=== PATIENT | female | born 1990 | race American Indian/Alaskan Native ===

== ENCOUNTER 2016-10-04 17:57 | Emergency (ER) | payer MEDICAID ==
[2016-10-04] MEDS ORDERED: TYLENOL PO ONE (18:45)
--- NOTE | 2016-10-04 19:01 | Emergency Department Report ---
Chief Complaint: Urogenital-Female Stated Complaint: SIDE PAINS Time Seen by Provider: 10/04/16 18:44 - HPI History of Present Illness: PT states she went to another ED last night for odor to urine. PT states she has had a UTI before and felt the same. PT states today her left side hurt. - ROS Review of Systems: + abd pain pt unsure if she has had fevers - dysuria - Exam Vital Signs: Vital Signs 10/04/16 10/04/16 18:42 18:55 Temperature 101.4 F H Pulse Rate 112 H Respiratory 20 20 Rate Blood Pressure 113/71 O2 Sat by Pulse 100 Oximetry Physical Exam: pt looks well, non toxic - however, pt found to be febrile in triage pt with mild llq tenderness on abd exam MSE screening note: Focused history and physical exam performed. Due to findings the following was ordered: due to fever and possible infection, labs including blood cultures ordered ED Disposition for MSE Condition: Stable
[2016-10-04 20:07] LABS: Bacteria,Urine 2+ /HPF (Negative); Bilirubin,Urine NEG (Negative); Blood,Urine LG (Negative); Ketones,Urine 20 mg/dL (Negative); Leukocyte Esterase,Urine TR (Negative); Mucus,Urine FEW /HPF; Nitrite,Urine NEG (Negative); Urobilinogen,Urine < 2.0 mg/dL (<2.0)
[2016-10-04 20:19] LABS: Hemoglobin 14.2 gm/dl (10.1-14.3); Mean Corpuscular HGB Conc 33 % (30-34); Mean Corpuscular Hemoglobin 29 pg (28-32); Mean Corpuscular Volume 87 fl (79-97); Red Blood Count 4.98 M/mm3 (3.65-5.03); Red Cell Distribution Width 17.2 % (13.2-15.2); White Blood Count 9.2 K/mm3 (4.5-11.0)
[2016-10-04 20:21] LABS: Alanine Aminotransferase 11 units/L (7-56); Albumin/Globulin Ratio 1.1 %; Alkaline Phosphatase 84 units/L (35-129); Anion Gap 18 mmol/L; Bilirubin,Total 0.7 mg/dL (0.1-1.2); Blood Urea Nitrogen 6 mg/dL (7-17); Calcium 8.6 mg/dL (8.4-10.2); Carbon Dioxide 20 mmol/L (22-30); Glucose 106 mg/dL (65-100); Lipase 20 units/L (13-60); Potassium 3.7 mmol/L (3.6-5.0); Sodium 131 mmol/L (137-145); Total Protein 7.8 g/dL (6.3-8.2)
[2016-10-04 20:21] LABS: Platelet Count 111 K/mm3 (140-440)
[2016-10-04 20:43] LABS: Basophils % (Manual) 0 % (0.0-1.8); Blastocytes % (Manual) 0 %; Eosinophils % (Manual) 0 % (0.0-4.3)
[2016-10-04 20:44] LABS: Platelet Estimate Appears Decreased
[2016-10-04 20:45] LABS: Anisocytosis Few; Diff Status Complete; Poikilocytosis Few
--- NOTE | 2016-10-04 22:28 | Emergency Department Report ---
HPI - General Chief Complaint: Urogenital-Female Time Seen by Provider: 10/04/16 18:44 - HPI HPI: 26-year-old female comes in with complaint of left side pain that started yesterday. Patient reports that she went to [facility] last night and left prior to obtaining her prescription. She reports that she was diagnosed with the UTI. She also complains of urinary has a smell no burning. She has a fever decreased appetite but drinking okay the pain is constant and worse with inhalation admits to nausea no vomiting. ED Past Medical Hx - Past Medical History Hx Hypertension: No Hx Diabetes: No Hx Deep Vein Thrombosis: No Hx Renal Disease: No Hx Sickle Cell Disease: No Hx Seizures: No Hx Asthma: No Hx HIV: No - Surgical History Past Surgical History?: No - Social History Smoking Status: Never Smoker Substance Use Type: None - Medications Home Medications: Home Medications Medication Instructions Recorded Confirmed Last Taken Type Ketorolac [Toradol] 10 mg PO Q6H PRN #20 tablet 10/05/16 Unknown Rx Nitrofurantoin Mcclain/M-Cryst 100 mg PO Q12HR #14 capsule 10/05/16 Unknown Rx [Macrobid CAP] ED Review of Systems ROS: Stated complaint: SIDE PAINS Other details as noted in HPI Physical Exam - Physical Exam Vital Signs: Vital Signs 10/04/16 10/04/16 18:42 18:55 Temperature 101.4 F H Pulse Rate 112 H Respiratory 20 20 Rate Blood Pressure 113/71 O2 Sat by Pulse 100 Oximetry Physical Exam: GENERAL: Alert and oriented x3, no apparent distress, Normal Gait, atraumatic. HEAD: Head is normocephalic and a-traumatic. EYES: Extra ocular muscles are intact. Pupils are equal, round, and reactive to light and accommodation. EARS: symetrical, atraumatic, non tender, ear canal clear and moderate cerumen, tympanic membrance non inflamed. gross auditory nml bilaterally. NOSE: Nose symetrical, Nontender,Nares appeared normal. MOUTH:Mouth is well hydrated and without lesions. Tonsils nonerythematous or swollen, Uvula midline, Tongue not elevated. Mucous membranes are moist. Posterior pharynx clear, no exudate or lesions. Patent airways. NECK: Supple. Non edematous, No carotid bruits. No lymphadenopathy or thyromegaly. LUNGS: Symetrical with respiration, No wheezing, no rales or crackles, CTAB. HEART: S1, S2 present, tachycardia rate and rhythm without murmur, no rubs, no gallops. ABDOMEN: No organomegaly was noted,Positive bowel sounds, soft, and non- distended. . tender to palpation of the LLQ L CVA tenderness. GENITOURINARY: External genitalia without erythema, exudate or discharge. Vaginal vault is without discharge. Cervix is of normal color without lesion. Cervical os is closed. No bleeding noted. Uterus is noted to be of normal size and nontender. No cervical motion tenderness. No masses are palpated. The adnexa are without masses or tenderness. EXTREMITIES/MUSCULOSKELETAL: No cyanosis, clubbing, rash, lesions or edema. Full ROM bilaterally. UE/LE Pulses 2+ bilaterally. LE and UE 5+ strength bilaterally NEUROLOGIC: No focal Deficit, Cranial nerves II through XII are grossly intact. No loss of sensation, No facial droop, Negative rhomberg. PSYCHIATRIC: Mood is congruent with affect, denies suicidal or homicidal ideations. SKIN: Warm and dry, No lesions, No ulceration or induration present ED Course Vital Signs 10/04/16 10/04/16 18:42 18:55 Temperature 101.4 F H Pulse Rate 112 H Respiratory 20 20 Rate Blood Pressure 113/71 O2 Sat by Pulse 100 Oximetry ED Medical Decision Making - Lab Data Result diagrams: 10/04/16 19:48 10/04/16 19:37 - Radiology Data FINDINGS: There is a nonobstructing 3 mm calculus in the midpole left kidney. There is no evidence for obstructing renal calculi or hydronephrosis. No evidence for ureteral or bladder calculus is seen. No evidence for renal or bladder mass is noted. Otherwise, within the limits of a noncontrast exam, the liver, spleen, pancreas, gallbladder, and adrenal glands are unremarkable. No evidence for retroperitoneal or pelvic lymphadenopathy is seen. Moderate stool is present throughout the colon. The small bowel loops have normal caliber. No fluid collection, inflammatory change, or free air is seen within the abdomen or pelvis. The appendix is normal. Within the pelvis, the uterus is enlarged. Images through the upper abdomen include the lung bases which are expanded and clear. Bony structures show no focal abnormalities. IMPRESSION: 1. No evidence for obstructing renal calculi or renal obstruction. 2. There is a nonobstructing calculus in the left midpole kidney 3. Enlarged uterus. - Medical Decision Making Patient's been evaluated by this provider in fast track. Discussed with patient that her urine did not appear to have any infection in it. Discussed the patient that we will need to do is a ultrasound of her abdomen and pelvic. Patient verbalized understanding. HCG is negative Critical care attestation.: If time is entered above; I have spent that time in minutes in the direct care of this critically ill patient, excluding procedure time. ED Disposition Clinical Impression: Kidney calculi Disposition: DISCHARGED TO HOME OR SELFCARE Is pt being admited?: No Does the pt Need Aspirin: No Condition: Stable Instructions: Kidney Stones (ED), Flank Pain (ED) Additional Instructions: Please drinking plenty of fluids. Take medication as prescribed. Follow-up with a flame cutting machine operator or urologist. Prescriptions: Ketorolac [Toradol] 10 mg PO Q6H PRN #20 tablet PRN Reason: Pain Nitrofurantoin Mcclain/M-Cryst [Macrobid CAP] 100 mg PO Q12HR #14 capsule Referrals: PRIMARY CARE, [Primary Care Provider] - 3-5 Days DIVYA BEAL MD [Staff Physician] - 3-5 Days IZABELA SHEFFIELD MD [Referring] - 3-5 Days HALEY XIE MD [Referring] - 3-5 Days MARCELA CROOKS MD [Referring] - 3-5 Days MARIAH LYONS MD [Referring] - 3-5 Days ROSARIO SHERIDNA MD [Staff Physician] - 3-5 Days Forms: Work/School Release Form(ED)
--- NOTE | 2016-10-04 23:00 | Cat Scan Report ---
FINAL REPORT EXAM: CT ABDOMEN PELVIS WO CON HISTORY: left side pain TECHNIQUE: Unenhanced stone protocol CT of the abdomen and pelvis at 3.0 millimeter axial increments. Coronal and sagittal reconstruction was also performed. PRIORS: None. FINDINGS: There is a nonobstructing 3 mm calculus in the midpole left kidney. There is no evidence for obstructing renal calculi or hydronephrosis. No evidence for ureteral or bladder calculus is seen. No evidence for renal or bladder mass is noted. Otherwise, within the limits of a noncontrast exam, the liver, spleen, pancreas, gallbladder, and adrenal glands are unremarkable. No evidence for retroperitoneal or pelvic lymphadenopathy is seen. Moderate stool is present throughout the colon. The small bowel loops have normal caliber. No fluid collection, inflammatory change, or free air is seen within the abdomen or pelvis. The appendix is normal. Within the pelvis, the uterus is enlarged. Images through the upper abdomen include the lung bases which are expanded and clear. Bony structures show no focal abnormalities. IMPRESSION: 1. No evidence for obstructing renal calculi or renal obstruction. 2. There is a nonobstructing calculus in the left midpole kidney 3. Enlarged uterus.
[2016-10-05] MEDS ORDERED: NACL 0.9% 1000 ML 1,000 ML IV ONE ×2 (00:12→00:14)
[2016-10-05] MEDS ORDERED: TORADOL IV ONE (00:46)
[2016-10-05] MEDS ORDERED: ROCEPHIN/NS 1 GM/50 ML 1 GM/50 ML BAG IV SCH (01:00)
[2016-10-05 03:17] VITALS: BP 101/66
== END 2016-10-05 03:18 | disposition home or self-care (01) ==
LOC: ED 17:57
DX: N20.0 Calculus of kidney (principal)
CPT/HCPCS: 36415; 74176; 80053; 81001; 81025; 82140; 83690; 85007; 85025; 87040; 87086; 96365; 96375; 99284; J0696; J1885; J7030

== ENCOUNTER 2017-10-18 05:55 | Day surgery (SDC) | payer MEDICAID ==
[~2017-10-18 05:55] MED LIST: MARCAINE 0.5% INFILTRATI ONE
[2017-10-18] MEDS ORDERED: MARCAINE 0.5% 30 ML INFILTRATI ONE (07:14)
[2017-10-18] MEDS ORDERED: DIPRIVAN 10 MG/ML IV ONE (07:30)
[2017-10-18] MEDS ORDERED: DILAUDID ONE (07:31)
[2017-10-18] MEDS ORDERED: DEMEROL IV PRN (07:54)
[2017-10-18] MEDS ORDERED: ZOFRAN IV PRN (07:54)
[2017-10-18] MEDS ORDERED: NARCAN 0.4 MG/1 ML IV PRN (07:54)
[2017-10-18] MEDS ORDERED: TORADOL IV PRN (07:54)
[2017-10-18] MEDS ORDERED: DILAUDID IV PRN ×2 (07:54)
--- NOTE | 2017-10-18 07:56 | Anesthesia Day of Surgery ---
Anesthesia Day of Surgery - Day of Surgery Patient Examined: Yes Patient H&P Reviewed: Yes Patient is NPO: Yes
--- NOTE | 2017-10-18 07:56 | Anesthesia Consultation ---
Anesthesia Consult and Med Hx Date of service: 10/18/17 - Airway Anesthetic Teeth Evaluation: Good ROM Head & Neck: Adequate Mental/Hyoid Distance: Adequate Mallampati Class: Class I Intubation Access Assessment: Good - Pulmonary Exam CTA: Yes - Cardiac Exam Cardiac Exam: No Murmur - Pre-Operative Health Status ASA Pre-Surgery Classification: ASA1 Proposed Anesthetic Plan: General - Pulmonary Hx Asthma: No - Cardiovascular System Hx Hypertension: No - Central Nervous System Hx Seizures: No Hx Psychiatric Problems: No - Endocrine Hx Renal Disease: No Hx Hypothyroidism: No Hx Hyperthyroidism: No - Hematic Hx Anemia: No Hx Sickle Cell Disease: No - Other Systems Hx Alcohol Use: Yes (occas) Hx Cancer: No
[2017-10-18] MEDS ORDERED: XYLOCAINE MPF 2% ONE (07:57)
[2017-10-18] MEDS ORDERED: VERSED IV NR ×2 (08:00)
[2017-10-18] MEDS ORDERED: ROBINUL IV NR (08:00)
[2017-10-18] MEDS ORDERED: TRANSDERM-SCOP TD NR (08:00)
[2017-10-18] MEDS ORDERED: LACTATED RINGERS 1,000 ML IV SCH (08:00)
--- NOTE | 2017-10-18 08:13 | History and Physical Report ---
History of Present Illness Date of examination: 10/18/17 Date of admission: 10/18/17 Chief complaint: surgery for scheduled BTL History of present illness: This is a 27 yo black female here for undesired fertility Past History Past Medical History: no pertinent history Past Surgical History: no surgical history Family/Genetic History: none Social history: no significant social history, single. denies: smoking, alcohol abuse, prescription drug abuse - Obstetrical History : 5 Medications and Allergies Allergies Allergy/AdvReac Type Severity Reaction Status Date / Time No Known Allergies Allergy Unverified 10/12/17 13:45 Home Medications Medication Instructions Recorded Confirmed Last Taken Type No Known Home Medications [No 10/12/17 10/12/17 Unknown History Reported Home Medications] Active Meds: Active Medications Glycopyrrolate (Robinul) 0.1 mg IV PREOP NR Stop: 10/18/17 16:00 Hydromorphone HCl (Dilaudid) 0.25 mg IV Q10MIN PRN PRN Reason: Pain, Moderate (4-6) Hydromorphone HCl (Dilaudid) 0.5 mg IV Q10MIN PRN PRN Reason: Pain , Severe (7-10) Stop: 10/18/17 16:00 Lactated Ringer's (Lactated Ringers) 1,000 mls @ 100 mls/hr IV DIRECT SHAUN Last Admin: 10/18/17 08:03 Dose: 100 mls/hr Ketorolac Tromethamine (Toradol) 30 mg IV ONCE PRN PRN Reason: Pain, Moderate (4-6) Stop: 10/18/17 16:00 Meperidine HCl (Demerol) 25 mg IV ONCE PRN PRN Reason: Shivering Stop: 10/18/17 16:00 Midazolam HCl (Versed) 2 mg IV PREOP NR Stop: 10/18/17 23:59 Last Admin: 10/18/17 08:03 Dose: 2 mg Midazolam HCl (Versed) 2 mg IV PREOP NR Stop: 10/18/17 23:59 Naloxone HCl (Narcan 0.4 Mg/1 Ml) 0.1 mg IV Q2MIN PRN PRN Reason: Res Rate </= 8 or 02 SAT < 92% Ondansetron HCl (Zofran) 4 mg IV ONCE PRN PRN Reason: Nausea And Vomiting Stop: 10/18/17 16:00 Scopolamine (Transderm-Scop) 1 each TD PREOP NR Stop: 10/21/17 07:59 Review of Systems All systems: negative - Physical Exam Breasts: Positive: normal Cardiovascular: Regular rate, Normal S1 Lungs: Positive: Clear to auscultation, Normal air movement Abdomen: Positive: normal appearance, soft. Negative: distention, tenderness, guarding Genitourinary (Female): Positive: normal external genitalia, normal perenium Vulva: both: normal Vagina: Positive: normal moisture Uterus: Positive: normal size Anus/Rectum: Positive: normal perianal skin Extremities: Positive: normal Deep Tendon Reflex Grade: Normal +2 Results All other labs normal. Assessment and Plan A/P Undesired infertility counseled about other options discussed risk of bleeding, infection, damage to pelvic and non pelvic organs risk of hysterectomy risk of blood transfusion, risk of pain, risk of failure patient desires to proceed
[2017-10-18 08:37] LABS: Hematocrit 41.5 % (30.3-42.9)
[2017-10-18] MEDS ORDERED: ROBINUL ONE (08:47)
[2017-10-18] MEDS ORDERED: NEOSTIGMINE ONE (08:47)
[2017-10-18] MEDS ORDERED: ZOFRAN ONE (08:47)
[2017-10-18] MEDS ORDERED: ZEMURON IV ONE (08:48)
[2017-10-18] MEDS ORDERED: SILVER NITRATE TP ONE ×2 (08:55→09:04)
[2017-10-18] MEDS ORDERED: MARCAINE 0.5% INFILTRATI ONE ×2 (09:01)
--- NOTE | 2017-10-18 09:17 | Operative Report ---
Operative Report Operative Report: PREOPERATIVE DIAGNOSIS: Desires permanent sterilization. POSTOPERATIVE DIAGNOSIS: Desires permanent sterilization. PROCEDURE: Laparoscopic tubal ligation, Falope ring method. ANESTHESIA: General. ESTIMATED BLOOD LOSS: 10 mL. COMPLICATIONS: None. INDICATIONS FOR SURGERY: A 27-year-old female,, who desires permanent sterilization. The risks of bleeding, infection, damage to other organs, and subsequent ectopic was explained. Informed consent was obtained. OPERATIVE FINDINGS: Normal appearing uterus and adnexa bilaterally. DESCRIPTION OF PROCEDURE: After administration of general anesthesia, the patient was placed in the dorsal lithotomy position, and prepped and draped in the usual sterile fashion. The speculum was placed in the vagina, the cervix was grasped with the tenaculum, and a uterine manipulator inserted. This area was then draped off the remainder of the operative field. A 5-mm incision was made umbilically after injecting 0.25% Marcaine, 2 mL. A Veress needle was inserted to confirm an opening pressure of 2 mmHg. Approximately 4 liters of CO2 gas was insufflated into the abdominal cavity. The Veress needle was removed, and a 5-mm port placed. Position was confirmed using a laparoscope. A second port was placed under direct visualization, 3 fingerbreadths suprapubically, 7 mm in diameter, after 2 mL of 0.25% Marcaine was injected. This was done under direct visualization. The pelvic cavity was examined with the findings as noted above. The Falope rings were then applied to each tube bilaterally. Good segments were noted to be ligated. The accessory port was removed. The abdomen was deflated. The laparoscope and sheath was removed. The skin edges were approximated with 5-0 Monocryl suture in subcuticular fashion. The instruments were removed from the vagina. The patient was returned to the supine position, recalled from anesthesia, and transferred to the recovery room in satisfactory condition. Sponge and needle counts correct at the conclusion of the case. Estimated blood loss was minimal.
--- NOTE | 2017-10-18 09:35 | Discharge Summary ---
Providers - Providers Date of Admission: 10/18/17 Date of discharge: 10/18/17 Attending physician: ORA THORNTON MD Primary care physician: ORA THORNTON MD Hospitalization Reason for admission: other (s/p BTL) Procedure: bilateral tubal ligation Condition at discharge: Good Disposition: [id number] TO HOME OR SELFCARE Plan - Provider Discharge Summary Activity: routine, no sex for 6 weeks Diet: routine Instructions: routine Additional instructions: [] Smoking cessation referral if applicable(refer to patient education folder for contact #) [] Refer to [facility]'s [facility] Booklet Call your doctor immediately for: * Fever > 100.5 * Heavy vaginal bleeding ( >1 pad per hour) * Severe persistent headache * Shortness of breath * Reddened, hot, painful area to leg or breast * Drainage or odor from incision. * Keep incision clean and dry at all times and follow doctor's instructions regarding bathing/showering - Follow up plan Follow up: ORA THORNTON MD [Primary Care Provider] - 7 Days
[2017-10-18] MEDS ORDERED: PERCOCET 5/325 PO PRN (09:46)
--- NOTE | 2017-10-18 10:23 | Post Anesthesia Evaluation ---
- Post Anesthesia Evaluation Patient Participated: Yes Airway Patent: Yes Stable Respiratory Function: Yes Nausea/Vomiting: No Temp > 96.8F: Yes Pain Manageable: Yes Adequeate Hydration: Yes Anesthesia Complications: No
[2017-10-18 19:36] VITALS: BP 127/77
== END 2017-10-18 12:32 | disposition home or self-care (01) ==
LOC: OR 05:55
PROVIDERS: ATTEND Obstetrics & Gynecology
DX: Z30.2 Encounter for sterilization (principal); Z79.899 Other long term (current) drug therapy; Z91.040 Latex allergy status
CPT/HCPCS: 36415; 58671; 81025; 85014; 85018; J1170; J1885; J2250; J2405; J2704; J2710; J7120